=== PATIENT | male | born 1940 | race Caucasian/White ===

== ENCOUNTER 2018-09-30 11:21 | Outpatient (CLI) | payer MEDICARE, OTHER ==
[~2018-09-30] VITALS: Ht 172.7 cm; Wt 87.1 kg
[2018-09-30 11:35] VITALS: BP 146/83
[2018-09-30] MEDS ORDERED: MONT10TA24 PO (12:16)
[2018-09-30] MEDS ORDERED: ATOR40TA70 PO (12:16)
[2018-09-30] MEDS ORDERED: FURO20TA4 PO (12:16)
[2018-09-30] MEDS ORDERED: METO100T12 PO (12:16)
[2018-09-30] MEDS ORDERED: TAMS0.4C98 PO (12:16)
[2018-09-30] MEDS ORDERED: LAMO100T PO (12:16)
[2018-09-30] MEDS ORDERED: AMLO10TA7 PO (12:16)
[2018-09-30] MEDS ORDERED: CITA20TA9 PO (12:16)
[2018-09-30] MEDS ORDERED: HYDR25TA4 PO (12:16)
[2018-09-30] MEDS ORDERED: CLON0.3T PO (12:16)
== END 2018-09-30 12:00 | disposition home or self-care (01) ==
LOC: PREOP 11:21
PROVIDERS: ATTEND Radiology Radiation Oncology
DX: Z01.818 Encounter for other preprocedural examination (principal)
CPT/HCPCS: 87081

== ENCOUNTER 2018-10-07 12:40 | Day surgery (SDC) | payer MEDICARE, OTHER ==
[2018-10-07] VITALS (9 sets, daily range): BP systolic 142–185; BP diastolic 80–96
[~2018-10-07] VITALS: Ht 172.7 cm; Wt 87.1 kg
[~2018-10-07 12:40] MED LIST: AMLO10TA7 PO; ATOR40TA70 PO; CITA20TA9 PO; CLON0.3T PO; FURO20TA4 PO; HYDR25TA4 PO; LAMO100T PO; METO100T12 PO; MONT10TA24 PO; TAMS0.4C98 PO
[2018-10-07] MEDS ORDERED: LACTATED RINGERS 1,000 ML IV PRN (12:47)
[2018-10-07] MEDS ORDERED: LEVOFLOXACIN 500 MG/100 ML IV 100 ML IV ONE (13:00)
--- NOTE | 2018-10-07 13:15 | NUR ---
tap water enema done
--- NOTE | 2018-10-07 13:42 | Progress Note-Pre Operative ---
Pre-Operative Progress Note H&P Reviewed The H&P was reviewed, patient examined and no changes noted. Date Seen by Provider: Oct 07, 2018 Time Seen by Provider: 13:42 Date H&P Reviewed: Oct 07, 2018 Time H&P Reviewed: 13:42 Pre-Operative Diagnosis: Prostate cancer cT1c, PSA 5.2, [place] 7 (3+4) JARRED FINE MD Oct 07, 2018 13:42
--- NOTE | 2018-10-07 13:45 | Discharge Inst-Simple/Standard ---
Discharge Inst-Standard Discharge Medications New, Converted or Re-Newed RX: Other (Patient has antibiotics at home) Patient Instructions/Follow Up Plan of Care/Instructions/FU: 10/21/18 CT simulation at [facility] cancer center at 10:00 a.m. Activity as Tolerated: Yes Discharge Diet: No Restrictions JARRED FINE MD Oct 07, 2018 13:45
[2018-10-07] MEDS ORDERED: ONDANSETRON 4 MG/2 ML (SDV) Z0FRAN ONE (13:56)
[2018-10-07] MEDS ORDERED: MIDAZOLAM 2 MG/2 ML (VERSED) VIAL ONE (13:56)
[2018-10-07] MEDS ORDERED: fentaNYL INJECTION 100 MCG/2 ML AMP ONE (13:56)
[2018-10-07] MEDS ORDERED: SEVOFLURANE (ULTANE) 15 ML INHAL SOLN ONE ×3 (13:56→14:33)
[2018-10-07] MEDS ORDERED: proPOfol 200 MG/20 ML (DIPRIVAN) VIAL IV ONE (13:56)
[2018-10-07] MEDS ORDERED: DEXAMETHASONE 10 MG/ML (DECADRON) 1 ML VIAL ONE (13:56)
[2018-10-07] MEDS ORDERED: LIDOCAINE PF 2% 5 ML (XYLOCAINE) VIAL ONE (13:56)
[2018-10-07] MEDS ORDERED: morphine INJ 10 MG/ML 1ML (SYR OR VIAL) IVP ONE (15:00)
[2018-10-07] MEDS ORDERED: ONDANSETRON 4 MG/2 ML (SDV) Z0FRAN IVP PRN (15:00)
--- NOTE | 2018-10-07 15:32 | Progress Note-Post Operative ---
Post-Operative Progess Note Surgeon (s)/Boarding Kennel Or Cattery Operator (s) Surgeon Rafi CASTANEDA MD Boarding Kennel Or Cattery Operator: JARRED FINE MD Pre-Operative Diagnosis Prostate cancer cT1c, PSA 5.2, [place] 7 (3+4) Post-Operative Diagnosis Same as pre-op Procedure & Operative Findings Date of Procedure 10/07/18 Procedure Performed/Findings (1) Placement of fiducial gold seed markers (2) Injection of biodegradable hydrogel prostate-rectal spacer utilizing the SpaceO[employer] system Anesthesia Type General Estimated Blood Loss Estimated blood loss (mL): minimal Specimens/Packing Specimens Removed none Packing: none JARRED FINE MD Oct 07, 2018 15:32
== END 2018-10-07 16:30 | disposition home or self-care (01) ==
LOC: SDC 12:40
PROVIDERS: ATTEND Radiology Radiation Oncology
DX: C61 Malignant neoplasm of prostate (principal); I10 Essential (primary) hypertension; I25.10 Atherosclerotic heart disease of native coronary artery without angina pectoris; E78.5 Hyperlipidemia, unspecified; Z86.73 Personal history of transient ischemic attack (TIA), and cerebral infarction without residual deficits; Z87.891 Personal history of nicotine dependence; Z79.899 Other long term (current) drug therapy; N20.0 Calculus of kidney; K59.00 Constipation, unspecified; K57.90 Diverticulosis of intestine, part unspecified, without perforation or abscess without bleeding; G40.909 Epilepsy, unspecified, not intractable, without status epilepticus; F32.9 Major depressive disorder, single episode, unspecified; J44.9 Chronic obstructive pulmonary disease, unspecified; Z95.5 Presence of coronary angioplasty implant and graft; I25.2 Old myocardial infarction; Z80.42 Family history of malignant neoplasm of prostate; K64.4 Residual hemorrhoidal skin tags

== ENCOUNTER → 2018-11-23 | Outpatient (RCR) | payer MEDICARE, OTHER | END | disposition home or self-care (01) | LOC: ONC 08-14 15:34 | PROVIDERS: ATTEND Radiology Radiation Oncology | DX: Z51.0 Encounter for antineoplastic radiation therapy (principal); C61 Malignant neoplasm of prostate | CPT/HCPCS: 76873; 77300; 77301; 77334; 77336; 77338; 77385; 99205 ==

== ENCOUNTER 2018-12-30 08:54 | Outpatient (RCR) | payer MEDICARE, OTHER | END 2019-02-22 | disposition home or self-care (01) | LOC: ONC 08:54 | PROVIDERS: ATTEND Radiology Radiation Oncology | DX: Z51.0 Encounter for antineoplastic radiation therapy (principal); C61 Malignant neoplasm of prostate | CPT/HCPCS: 77336; 77385 ==

== ENCOUNTER 2019-03-17 13:41 | Outpatient (RCR) | payer MEDICARE, OTHER ==
[~2019-03-17 13:41] MED LIST changes: -LAMO100T PO; +LAMO100T5 PO; -MONT10TA24 PO; +MONT10TA26 PO; -TAMS0.4C98 PO; +TMSL.4C PO
== END 2019-06-15 | disposition home or self-care (01) ==
LOC: ONC 13:41
PROVIDERS: ATTEND Radiology Radiation Oncology
DX: C61 Malignant neoplasm of prostate (principal)
CPT/HCPCS: 84153; 99213